=== PATIENT | female | born 1960 | race Caucasian/White ===

== ENCOUNTER → 2018-03-25 | Outpatient (CLI) | payer OTHER | LOC: M LRY 13:07 | DX: R05 Cough (principal) ==

== ENCOUNTER 2018-04-06 05:49 | Emergency (ER) | payer OTHER ==
[2018-04-06] MEDS: IPRATROPIUM 0.5MG/ALBUTEROL 2.5MG INH SOL UD 3ML (DUONEB)(J7620) NEB (07:18)
[2018-04-06] MEDS: ALBUTEROL SULFATE 2.5 MG/0.5 ML INH NEB SOLN INH (07:18)
[2018-04-06 07:24] LABS: BASO # 0.1 10^3/uL (0.0-0.2); BASO % 0.7 % (0.0-1.0); EOS # 0.9 10^3/uL (0.0-0.50); EOS % 10.1 % (0.0-3.0); HEMATOCRIT 44.7 % (36.0-47.0); HEMOGLOBIN 14.7 g/dl (12.0-15.5); IMMATURE GRANULOCYTE % 0.2 % (0-3.0); LYMPH # 3.5 10^3/uL (1.5-4.5); LYMPH % 39.5 % (24.0-44.0); MEAN CORPUSCULAR HEMOGLOBIN 29.5 pg (27.0-33.0); MEAN CORPUSCULAR HGB CONC 32.9 g/dl (32.0-36.5); MEAN CORPUSCULAR VOLUME 89.8 fl (80.0-96.0); MONO # 0.7 10^3/uL (0.0-0.8); MONO % 7.4 % (0.0-5.0); NEUTROPHILS # 3.8 10^3/uL (1.8-7.7); NEUTROPHILS % 42.1 % (36.0-66.0); PLATELET COUNT, AUTOMATED 270 10^3/uL (150-450); RED BLOOD COUNT 4.98 10^6/uL (4.00-5.40); RED CELL DISTRIBUTION WIDTH 12.8 % (11.5-14.5); WHITE BLOOD COUNT 8.9 10^3/uL (4.0-10.0)
[2018-04-06] MEDS: methylPREDNISolone INJ 125 MG/2 ML VIAL (J2930) IV (07:40)
[2018-04-06 07:55] LABS: ALBUMIN/GLOBULIN RATIO 1.29 (1.00-1.93); ALKALINE PHOSPHATASE 74 U/L (45-117); ALT/SGPT 31 U/L (12-78); ANION GAP 9 MEQ/L (8-16); AST/SGOT 10 U/L (7-37); BILIRUBIN,DIRECT < 0.1 MG/DL (0.0-0.2); BILIRUBIN,TOTAL 0.4 MG/DL (0.2-1.0); BLOOD UREA NITROGEN 10 MG/DL (7-18); CALCIUM LEVEL 9.6 MG/DL (8.5-10.1); CARBON DIOXIDE LEVEL 25 MEQ/L (21-32); CHLORIDE LEVEL 108 MEQ/L (98-107); CPK CREATINE PHOSPHOKINASE 65 U/L (26-192); CREATININE FOR GFR 0.74 MG/DL (0.55-1.30); GLOMERULAR FILTRATION RATE > 60.0 (>51); GLUCOSE, FASTING 216 MG/DL (70-100); MB/CK RELATIVE INDEX 1.85 (< OR =4); NT-PRO BNP 34 PG/ML (<125); POTASSIUM SERUM 3.6 MEQ/L (3.5-5.1); SODIUM LEVEL 142 MEQ/L (136-145); TOTAL PROTEIN 7.1 GM/DL (6.4-8.2); TROPONIN I < 0.02 NG/ML (< 0.10)
[2018-04-06 07:58] LABS: LACTIC ACID SEPSIS PROTOCOL 2.2 MMOL/L (0.4-2.0)
[2018-04-06] MEDS: NS 1,000 ML IV (08:00)
[2018-04-06] MEDS: AZITHROMYCIN 250 MG TAB PO (09:10)
== END 2018-04-06 09:12 | disposition home or self-care (01) ==
LOC: M ED 05:49
DX: J45.901 Unspecified asthma with (acute) exacerbation (principal); E11.9 Type 2 diabetes mellitus without complications; I10 Essential (primary) hypertension; Z79.84 Long term (current) use of oral hypoglycemic drugs; Z79.899 Other long term (current) drug therapy
CPT/HCPCS: J2930

== ENCOUNTER → 2019-12-15 | Outpatient (CLI) | payer OTHER ==
[~2019-12-15] MED LIST: ADDE10CA3 PO; ADDE30CA3 PO; ADV250INH INH; CAPTO25TA PO; METF-838 PO; MUCI600T31 PO; PROV108A INH; REST0.05 OS; ZITHTAB PO
[2019-12-15 07:05] LABS: HEMOGLOBIN 14.7 g/dl (12.0-15.5); MEAN CORPUSCULAR HEMOGLOBIN 29.8 pg (27.0-33.0); MEAN CORPUSCULAR HGB CONC 32.7 g/dl (32.0-36.5); MEAN CORPUSCULAR VOLUME 91.1 fl (80.0-96.0); PLATELET COUNT, AUTOMATED 217 10^3/uL (150-450); RED BLOOD COUNT 4.94 10^6/uL (4.00-5.40); WHITE BLOOD COUNT 8.7 10^3/uL (4.0-10.0)
[2019-12-15 07:26] LABS: HEMOGLOBIN A1c 7.1 %
[2019-12-15 08:03] LABS: ALBUMIN 4.5 GM/DL (3.2-5.2); ALT/SGPT 23 U/L (12-78); BILIRUBIN,TOTAL 0.6 MG/DL (0.2-1.0); BLOOD UREA NITROGEN 14 MG/DL (7-18); CALCIUM LEVEL 10.3 MG/DL (8.5-10.1); CARBON DIOXIDE LEVEL 29 MEQ/L (21-32); CHLORIDE LEVEL 109 MEQ/L (98-107); CHOLESTEROL LEVEL 194 MG/DL (<200); CHOLESTEROL RISK RATIO 2.984 (<5); CREATININE FOR GFR 0.69 MG/DL (0.55-1.30); FOLATE 15.7 NG/ML; FREE T4 0.99 NG/DL (0.76-1.46); GLOMERULAR FILTRATION RATE > 60.0 (>51); GLUCOSE, FASTING 125 MG/DL (70-100); HDL CHOLESTEROL 65 MG/DL (>40); LDL CHOLESTEROL 116 MG/DL (<100); NON-HDL-C 129 MG/DL; POTASSIUM SERUM 5.2 MEQ/L (3.5-5.1); SODIUM LEVEL 140 MEQ/L (136-145); TOTAL 25(OH) VITAMIN D 139.9 NG/ML (30.0-100.0); TOTAL PROTEIN 6.8 GM/DL (6.4-8.2); TRIGLYCERIDES LEVEL 65 MG/DL (<150); VITAMIN B12 LEVEL 798 PG/ML
[2019-12-15 16:52] LABS: MALB URINE SIEMENS 28.3 MG/L
== END ==
LOC: M LAB 06:30
PROVIDERS: ATTEND Nurse Practitioner Family
DX: E11.9 Type 2 diabetes mellitus without complications (principal); I10 Essential (primary) hypertension; R20.2 Paresthesia of skin; E04.1 Nontoxic single thyroid nodule; R53.81 Other malaise

== ENCOUNTER → 2020-03-19 | Outpatient (CLI) | payer SELFPAY | LOC: M LABSMTC 14:20 | PROVIDERS: ATTEND Pediatrics | DX: Z20.828 Contact with and (suspected) exposure to other viral communicable diseases (principal) ==

== ENCOUNTER → 2020-04-12 | Outpatient (CLI) | payer OTHER ==
[2020-04-12 07:08] LABS: HEMOGLOBIN A1c 6.1 %
[2020-04-12 07:14] LABS: ALBUMIN 3.9 GM/DL (3.2-5.2); ALT/SGPT 22 U/L (12-78); BILIRUBIN,TOTAL 0.5 MG/DL (0.2-1.0); BLOOD UREA NITROGEN 17 MG/DL (7-18); CALCIUM LEVEL 9.8 MG/DL (8.5-10.1); CARBON DIOXIDE LEVEL 30 MEQ/L (21-32); CHLORIDE LEVEL 107 MEQ/L (98-107); CHOLESTEROL LEVEL 121 MG/DL (<200); CHOLESTEROL RISK RATIO 1.833 (<5); CREATININE FOR GFR 0.75 MG/DL (0.55-1.30); GLOMERULAR FILTRATION RATE > 60.0 (>51); GLUCOSE, FASTING 131 MG/DL (70-100); HDL CHOLESTEROL 66 MG/DL (>40); LDL CHOLESTEROL 44 MG/DL (<100); NON-HDL-C 55 MG/DL; POTASSIUM SERUM 4.2 MEQ/L (3.5-5.1); SODIUM LEVEL 142 MEQ/L (136-145); TOTAL PROTEIN 6.2 GM/DL (6.4-8.2); TRIGLYCERIDES LEVEL 54 MG/DL (<150)
[2020-04-12 10:49] LABS: TOTAL 25(OH) VITAMIN D 76.1 NG/ML (30.0-100.0)
== END ==
LOC: M LAB 06:15
PROVIDERS: ATTEND Nurse Practitioner Family
DX: E78.2 Mixed hyperlipidemia (principal); E55.9 Vitamin D deficiency, unspecified; E11.9 Type 2 diabetes mellitus without complications; I10 Essential (primary) hypertension

== ENCOUNTER → 2020-05-17 | Outpatient (REF) | payer OTHER ==
[2020-05-17 18:45] LABS: APPEARANCE, URINE TURBID (CLEAR); BACTERIA, URINE AUTO NEGATIVE (NEGATIVE); BILIRUBIN, URINE AUTO NEGATIVE (NEGATIVE); BLOOD, URINE BLOOD NEGATIVE (NEGATIVE); CALCIUM OXALATE CRYSTALS MODERATE; COLOR, URINE YELLOW (YELLOW); GLUCOSE, URINE (UA) AUTO 1+ mg/dL (NEGATIVE); KETONE, URINE AUTO NEGATIVE (NEGATIVE); LEUKOCYTE ESTERASE, URINE AUTO NEGATIVE (NEGATIVE); MUCUS, URINE SMALL (NEGATIVE); NITRITE, URINE AUTO NEGATIVE (NEGATIVE); PROTEIN, URINE AUTO NEGATIVE (NEGATIVE); RBC, URINE AUTO 4 /HPF (0-3); SPECIFIC GRAVITY URINE AUTO 1.028 (1.002-1.035); SQUAMOUS EPITHELIAL CELL UR AU 1 /HPF (0-6); URIC ACID CRYSTALS LARGE; UROBILINOGEN, URINE AUTO 0.2 mg/dL (0.0-2.0); WBC, URINE AUTO 0 /HPF (0-3)
== END ==
LOC: M LAB REF 16:54
PROVIDERS: ATTEND Physician Assistant
DX: N39.0 Urinary tract infection, site not specified (principal)

== ENCOUNTER → 2020-07-29 | Outpatient (CLI) | payer OTHER ==
[2020-07-29 07:19] LABS: BLOOD UREA NITROGEN 18 MG/DL (7-18); CALCIUM LEVEL 9.9 MG/DL (8.5-10.1); CARBON DIOXIDE LEVEL 27 MEQ/L (21-32); CHLORIDE LEVEL 109 MEQ/L (98-107); CREATININE FOR GFR 0.82 MG/DL (0.55-1.30); GLOMERULAR FILTRATION RATE > 60.0 (>51); GLUCOSE, FASTING 134 MG/DL (70-100); POTASSIUM SERUM 4.3 MEQ/L (3.5-5.1); SODIUM LEVEL 144 MEQ/L (136-145)
[2020-07-29 07:22] LABS: HEMOGLOBIN A1c 5.9 %
== END ==
LOC: M LAB 06:20
PROVIDERS: ATTEND Nurse Practitioner Family
DX: E11.9 Type 2 diabetes mellitus without complications (principal); I10 Essential (primary) hypertension

== ENCOUNTER → 2020-08-06 | Outpatient (CLI) | payer OTHER ==
--- NOTE | 2020-08-06 17:45 | REP ---
INDICATION: CONSTIPATION, UNSPECIFIED. COMPARISON: None. TECHNIQUE: Supine and erect views of the abdomen and pelvis. FINDINGS: There is no evidence of free intraperitoneal air. There is no evidence of bowel obstruction. Air is scattered throughout the GI tract with no significant bowel dilatation. There are multiple phleboliths in the pelvis. There are degenerative changes of the spine. IMPRESSION: No significant radiographic abnormalities. <Electronically signed by Alfonso Webb > 08/06/20 [id number]
== END ==
LOC: M RAD 17:15
PROVIDERS: ATTEND Nurse Practitioner Family
DX: K59.00 Constipation, unspecified (principal)

== ENCOUNTER → 2020-08-07 | Outpatient (REF) | payer OTHER | LOC: M LAB REF 14:42 | PROVIDERS: ATTEND Nurse Practitioner Family | DX: R19.7 Diarrhea, unspecified (principal) ==

== ENCOUNTER → 2020-10-01 | Outpatient (CLI) | payer OTHER ==
[2020-10-01 07:07] LABS: BASO % 0.7 % (0.0-1.0); EOS # 0.3 10^3/uL (0.0-0.5); EOS % 4.6 % (0.0-3.0); HEMOGLOBIN 13.3 g/dl (12.0-15.5); LYMPH # 2.7 10^3/uL (1.5-5.0); LYMPH % 43.6 % (24.0-44.0); MEAN CORPUSCULAR HGB CONC 32.4 g/dl (32.0-36.5); MEAN CORPUSCULAR VOLUME 92.6 fl (80.0-96.0); MONO # 0.6 10^3/uL (0.0-0.8); MONO % 9.1 % (2.0-8.0); NEUTROPHILS # 2.6 10^3/uL (1.5-8.5); NEUTROPHILS % 41.7 % (36.0-66.0); PLATELET COUNT, AUTOMATED 206 10^3/uL (150-450); RED BLOOD COUNT 4.43 10^6/uL (4.00-5.40); WHITE BLOOD COUNT 6.2 10^3/uL (4.0-10.0)
[2020-10-01 07:34] LABS: BLOOD UREA NITROGEN 23 MG/DL (7-18); CREATININE FOR GFR 0.72 MG/DL (0.55-1.30); GLOMERULAR FILTRATION RATE > 60.0 (>51)
== END ==
LOC: M LAB 06:32
PROVIDERS: ATTEND Internal Medicine Gastroenterology
DX: R19.03 Right lower quadrant abdominal swelling, mass and lump (principal)

== ENCOUNTER → 2020-10-08 | Outpatient (CLI) | payer OTHER ==
[~2020-10-08] MED LIST changes: +D200CAP3 PO; +GASTROGRAFIN SOLUTION 30ML (Q9963) As Ordered ONE; +ISOVUE-370 76% 100ML VIAL As Ordered ONE; +MELO15TA28 PO; +VITA500T40 PO
--- NOTE | 2020-10-09 08:46 | REP ---
INDICATION: RLQ SWELLING, MASS, LUMP. COMPARISON: None TECHNIQUE: Axial contrast-enhanced images from the lung bases to the pubic symphysis using 100 cc Isovue 370 intravenous contrast material. . This CT examination was performed using the following dose reduction techniques: Automated exposure control, adjustment of mA and/or kv according to the patient's size, and the use of iterative reconstruction technique. FINDINGS: There is a large complex cystic pelvic adnexal mass which appears to contain soft tissue, fluid, calcifications and fatty components along with multiple septations and measuring greater than 14 x 13 x 10 cm. Differential diagnosis includes teratoma as well as cystadenoma/cystadenocarcinoma. A trace amount of free fluid is nonspecific and likely physiologic. No significant ascites and no adenopathy is appreciated. The uterus itself appears somewhat heterogeneous and possibly myomatous. Normal ovaries are not identifiable. Liver, spleen, pancreas, gallbladder, bilateral adrenal glands and kidneys are normal. The enteric system includes a small hiatal hernia. There is no bowel obstruction or acute inflammatory process. Few scattered sigmoid diverticula noted without acute diverticulitis. Abdominal aorta and vascular structures are intact and normal. No free air. Musculoskeletal structures are intact and without acute osseous abnormality. Lung bases are clear. IMPRESSION: 1. Large complex pelvic/adnexal mass as described above. Differential diagnosis includes but is not limited to teratoma as well as cystadenoma and much less likely cystadenocarcinoma. <Electronically signed by Angel Gonsalves > 10/09/20 [id number]
== END ==
LOC: M RAD 16:04
PROVIDERS: ATTEND Internal Medicine Gastroenterology
DX: R19.03 Right lower quadrant abdominal swelling, mass and lump (principal)

== ENCOUNTER → 2020-10-13 | Outpatient (CLI) | payer OTHER ==
[~2020-10-13] MED LIST changes: -GASTROGRAFIN SOLUTION 30ML (Q9963) As Ordered ONE; -ISOVUE-370 76% 100ML VIAL As Ordered ONE
== END ==
LOC: M LABSMTC 12:42
PROVIDERS: ATTEND Anesthesiology
DX: Z01.812 Encounter for preprocedural laboratory examination (principal); Z20.822 Contact with and (suspected) exposure to COVID-19

== ENCOUNTER → 2020-10-15 | Outpatient (CLI) | payer OTHER ==
--- NOTE | 2020-10-15 12:46 | REP ---
INDICATION: COMPLEX CYSTIC PELVIC MASS / US 1ST LAB 2ND EKG 3RD. COMPARISON: Comparison is made with CT study of the abdomen and pelvis October 08, 2020.. TECHNIQUE: Transabdominal and transvaginal scanning were performed. FINDINGS: Uterine dimensions are normal at 8.3 x 3.9 x 5 point cm. Endometrial echo is X 0.3 cm thick and centrally placed. No free fluid is seen in the cul-de-sac. Visualized bladder beach are smooth. There is a trace of fluid in the cul-de-sac. The uterus is heterogeneous. There are small uterine fibroids the largest of which is 2.2 cm in greatest diameter. There is a 1.7 cm uterine fibroid. There is a midline ovary posterior to the uterus measuring 2.6 x 1.4 x 2.2 cm. It was not possible to determine whether this was right or left ovary. No other ovarian tissue is appreciated. There is a complex solid and cystic mass filling the pelvis 19.6 x 8.4 x 14.4 cm and sonographic dimension. This corresponds to the large mass seen in the pelvis on CT.. 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 Only 1 ovary is visualized and this is in the midline. Fibroid change in the uterus. There is minimal free fluid.. <Electronically signed by Eric Gant > 10/15/20 [id number]
[2020-10-15 14:18] LABS: CA 125 7.3 U/ML (<30.2); CA19-9 TUMOR MARKER,CARBOHYDRA 82.4 U/ML (<35.0)
--- NOTE | 2020-10-15 22:14 | ECGEPIP ---
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 No significant change compared with 04/06/2018. Electronically Signed on 10-15-2020 22:14:19 EDT by Sai Medellin
== END ==
LOC: M LAB 11:08
PROVIDERS: ATTEND Obstetrics & Gynecology
DX: N83.291 Other ovarian cyst, right side (principal)

== ENCOUNTER 2020-10-18 06:40 | Day surgery (SDC) | payer OTHER ==
[~2020-10-18] VITALS: Ht 170.2 cm; Wt 67.1 kg
[~2020-10-18 06:40] MED LIST changes: +NS 1,000 ML IV ONE
[2020-10-18] MEDS ORDERED: LIDOCAINE 2% 100MG/5ML SDV (FOR ANES.) As Ordered ONE (07:11)
[2020-10-18] MEDS ORDERED: propofoL 200 MG/20 ML VIAL As Ordered ONE ×3 (07:11→09:07)
[2020-10-18] MEDS ORDERED: MIDAZOLAM INJ 2MG/2ML VIAL (J2250 PER 1MG) As Ordered ONE (07:15)
[2020-10-18] MEDS ORDERED: ONDANSETRON 4MG/2ML VIAL As Ordered ONE (07:47)
--- NOTE | 2020-10-18 08:28 | ROOR ---
Patient Name: Darcie Pinon Procedure Date: 10/18/2020 7:32 AM Date of : 1960 Age: 60 Room: [facility] Gender: Female Note Status: Finalized Procedure: Colonoscopy Indications: Screening for colorectal malignant neoplasm Providers: Ortiz Johnson MD Referring MD: Jazz Flynn NP Requesting Provider: Medicines: Monitored Anesthesia Care Complications: No immediate complications. Procedure: Pre-Anesthesia Assessment: - Prior to the procedure, a History and Physical was performed, and patient medications and allergies were reviewed. The patient is competent. The risks and benefits of the procedure and the sedation options and risks were discussed with the patient. All questions were answered and informed consent was obtained. Patient identification and proposed procedure were verified by the physician, the nurse and the anesthesiologist in the procedure room. Mental Status Examination: alert and oriented. Airway Examination: normal oropharyngeal airway and neck mobility. Respiratory Examination: clear to auscultation. CV Examination: normal. Prophylactic Antibiotics: The patient does not require prophylactic antibiotics. Prior Anticoagulants: The patient has taken no previous anticoagulant or antiplatelet agents. ASA Grade Assessment: II - A patient with mild systemic disease. After reviewing the risks and benefits, the patient was deemed in satisfactory condition to undergo the procedure. The anesthesia plan was to use monitored anesthesia care (MAC). Immediately prior to administration of medications, the patient was re-assessed for adequacy to receive sedatives. The heart rate, respiratory rate, oxygen saturations, blood pressure, adequacy of pulmonary ventilation, and response to care were monitored throughout the procedure. The physical status of the patient was re-assessed after the procedure. The Colonoscope was introduced through the anus and advanced to the terminal ileum, with identification of the appendiceal orifice and IC valve. The colonoscopy was performed without difficulty. The patient tolerated the procedure well. The quality of the bowel preparation was good. The terminal ileum, ileocecal valve, appendiceal orifice, and rectum were photographed. Scope insertion time was 2 minutes. The Colonoscope was introduced through the anus and advanced to the terminal ileum, with identification of the appendiceal orifice and IC valve. Scope withdrawal time was 9 minutes. The total duration of the procedure was 12 minutes. Findings: The perianal and digital rectal examinations were normal. The terminal ileum appeared normal. A 5 mm polyp was found in the cecum. The polyp was sessile. The polyp was removed with a cold snare. Resection and retrieval were complete. Verification of patient identification for the specimen was done by the physician and nurse using the patient's name, date and medical record number. Estimated blood loss was minimal. A 3 mm polyp was found in the descending colon. The polyp was sessile. The polyp was removed with a cold biopsy forceps. Resection and retrieval were complete. Multiple small and large-mouthed diverticula were found in the sigmoid colon. There was no evidence of diverticular bleeding. The sigmoid colon was significantly tortuous. Advancing the scope required withdrawing the scope and replacing with the enteroscope. Impression: - The examined portion of the ileum was normal. - One 5 mm polyp in the cecum, removed with a cold snare. Resected and retrieved. - One 3 mm polyp in the descending colon, removed with a cold biopsy forceps. Resected and retrieved. - Moderate diverticulosis in the sigmoid colon. There was no evidence of diverticular bleeding. - Tortuous colon. Recommendation: - Patient has a contact number available for emergencies. The signs and symptoms of potential delayed complications were discussed with the patient. Return to normal activities tomorrow. Written discharge instructions were provided to the patient. - High fiber diet. - Continue present medications. - Use fiber, for example Citrucel, Fibercon, Konsyl or Metamucil. - Await pathology results. - Telephone GI clinic for pathology results in 2 weeks. - Refer to a uniform designer as previously scheduled. - Return to primary care physician. - Repeat colonoscopy in 3 - 5 years for screening purposes and because the bowel preparation was suboptimal. Procedure Code(s): --- Professional --- 60139, Colonoscopy, flexible; with removal of tumor(s), polyp(s), or other lesion(s) by snare technique 92914, 59, Colonoscopy, flexible; with biopsy, single or multiple Diagnosis Code(s): --- Professional --- Z12.11, Encounter for screening for malignant neoplasm of colon K63.5, Polyp of colon K57.30, Diverticulosis of large intestine without perforation or abscess without bleeding Q43.8, Other specified congenital malformations of intestine CPT copyright 2019 [employer]. All rights reserved. The codes documented in this report are preliminary and upon wire spinner review may be revised to meet current compliance requirements. Ortiz Johnson MD Ortiz Johnson MD 10/18/2020 8:27:36 AM Electronically signed by Ortiz Johnson MD Number of Addenda: 0 Note Initiated On: 10/18/2020 7:32 AM Estimated Blood Loss: Estimated blood loss was minimal.
[2020-10-18 08:41] VITALS: BP 167/94
== END 2020-10-18 08:42 | disposition home or self-care (01) ==
LOC: M OPP 06:40
PROVIDERS: ATTEND Internal Medicine Gastroenterology
DX: Z12.11 Encounter for screening for malignant neoplasm of colon (principal); K63.5 Polyp of colon; Q43.8 Other specified congenital malformations of intestine; E11.9 Type 2 diabetes mellitus without complications; Z79.84 Long term (current) use of oral hypoglycemic drugs; Z79.899 Other long term (current) drug therapy
CPT/HCPCS: 45380; 45385; 88305; J2405; U0002

== ENCOUNTER 2020-10-21 06:38 | Day surgery (SDC) | payer OTHER ==
[~2020-10-21] VITALS: Ht 170.2 cm; Wt 68.0 kg
[2020-10-21] VITALS (7 sets, daily range): BP systolic 119–132; BP diastolic 59–80
[~2020-10-21 06:38] MED LIST changes: +LR 1,000 ML IV ONE; -NS 1,000 ML IV ONE; +ceFAZolin SOD 2 GM in IV 1 EA IV ONE
[2020-10-21] MEDS ORDERED: fentaNYL 100 MCG/2 ML INJECTION (J3010) IV PRN ×2 (07:01→12:30)
[2020-10-21 07:10] LABS: HEMATOCRIT 43.6 % (36.0-47.0); HEMOGLOBIN 14.2 g/dl (12.0-15.5); MEAN CORPUSCULAR HEMOGLOBIN 29.8 pg (27.0-33.0); MEAN CORPUSCULAR HGB CONC 32.6 g/dl (32.0-36.5); MEAN CORPUSCULAR VOLUME 91.6 fl (80.0-96.0); PLATELET COUNT, AUTOMATED 225 10^3/uL (150-450); RED BLOOD COUNT 4.76 10^6/uL (4.00-5.40); WHITE BLOOD COUNT 7.6 10^3/uL (4.0-10.0)
[2020-10-21] MEDS ORDERED: MIDAZOLAM INJ 2MG/2ML VIAL (J2250 PER 1MG) IV ONE (07:15)
[2020-10-21] MEDS ORDERED: LIDOCAINE 1% MDV 20ML VIAL XX ONE (07:15)
[2020-10-21 07:32] LABS: BLOOD UREA NITROGEN 11 MG/DL (7-18); CALCIUM LEVEL 9.7 MG/DL (8.5-10.1); CARBON DIOXIDE LEVEL 29 MEQ/L (21-32); CHLORIDE LEVEL 110 MEQ/L (98-107); CREATININE FOR GFR 0.72 MG/DL (0.55-1.30); GLOMERULAR FILTRATION RATE > 60.0 (>51); GLUCOSE, FASTING 126 MG/DL (70-100); POTASSIUM SERUM 4.3 MEQ/L (3.5-5.1); SODIUM LEVEL 143 MEQ/L (136-145)
[2020-10-21] MEDS ORDERED: SCOPOLAMINE 1MG TRANSDERMAL PATCH TOP ONE (07:50)
[2020-10-21] MEDS ORDERED: ROCURONIUM BROMIDE 50 MG/5 ML VIAL As Ordered ONE ×2 (08:37→09:21)
[2020-10-21] MEDS ORDERED: dexameTHASONE 4 MG/ML 1ML VIAL (J1100 PER 1MG) As Ordered ONE ×2 (08:37→10:27)
[2020-10-21] MEDS ORDERED: LIDOCAINE 2% 100MG/5ML SDV (FOR ANES.) As Ordered ONE (08:37)
[2020-10-21] MEDS ORDERED: fentaNYL 100 MCG/2 ML INJECTION (J3010) As Ordered ONE (08:37)
[2020-10-21] MEDS ORDERED: MIDAZOLAM INJ 2MG/2ML VIAL (J2250 PER 1MG) As Ordered ONE (08:37)
[2020-10-21] MEDS ORDERED: ALBUTEROL 6.7GM INHALER **FOR ANES. CART/OMNICELL ONLY As Ordered ONE (08:37)
[2020-10-21] MEDS ORDERED: ONDANSETRON 4MG/2ML VIAL As Ordered ONE (08:37)
[2020-10-21] MEDS ORDERED: propofoL 200 MG/20 ML VIAL As Ordered ONE (08:37)
[2020-10-21] MEDS ORDERED: BUPIVACAINE HCL 0.25% 30ML VIAL As Ordered ONE (08:38)
[2020-10-21] MEDS ORDERED: EPIDURAL/PCA KEYS XX PRN (09:35)
[2020-10-21] MEDS ORDERED: NALOXONE INJ 0.4MG/1ML VIAL (J2310 PER 1MG) IV PRN (09:35)
[2020-10-21] MEDS ORDERED: METOCLOPRAMIDE INJ 10MG/2ML VIAL (J2765 PER 1) IV PRN (09:35)
[2020-10-21] MEDS ORDERED: diphenhydrAMINE 50MG/ML VIAL (J1200) IV PRN (09:35)
[2020-10-21] MEDS ORDERED: ONDANSETRON 4MG/2ML VIAL IV PRN ×2 (09:35→12:30)
[2020-10-21] MEDS ORDERED: WALLBOXKEY XX PRN (09:35)
[2020-10-21] MEDS ORDERED: FENTANYL/BUPIVACAINE/NACL BAG 250 ML EPIDURAL SCH (09:35)
[2020-10-21] MEDS ORDERED: ACETAMINOPHEN 1000MG 100ML IV BTL (OFIRMEV) (J0131 PER 10MG) As Ordered ONE (10:27)
[2020-10-21] MEDS ORDERED: KETOROLAC 60MG 2ML VIAL As Ordered ONE (10:32)
[2020-10-21] MEDS ORDERED: SUGAMMADEX SODIUM 500 MG/5 ML VIAL (BRIDION) As Ordered ONE (10:32)
[2020-10-21] MEDS ORDERED: NORCO, ANEXSIA 5/325MG TABLET (HYDROcodone/ACETAMINOPHEN) PO PRN (11:30)
[2020-10-21] MEDS ORDERED: oxyCODONE 5MG TAB PO PRN (12:30)
[2020-10-21] MEDS ORDERED: LR 1,000 ML IV SCH (12:30)
--- NOTE | 2020-10-21 13:02 | RO ---
OPERATIVE NOTE DATE OF OPERATION: 10/21/2020 PREOPERATIVE DIAGNOSIS: Fibroid uterus and right ovarian mass. POSTOPERATIVE DIAGNOSIS: Borderline mucinous lesion of the left ovary, fibroid uterus. PROCEDURE: Total abdominal hysterectomy (JOHN), bilateral salpingo-oophorectomy (BSO), washings, omental biopsy. SURGEON: Dr. Griffith BASIN CLEANER: None ANESTHESIA: Epidural SPECIMENS: Uterus, ovaries, tubes, and, of course, the omental biopsy and the washings for cytology. BRIEF DESCRIPTION OF PROCEDURE AND FINDINGS: Darcie was brought to the operating room, where epidural anesthesia was induced. She was prepped, draped, and positioned in the usual sterile fashion, placed supine with a Ngo. Vertical midline incision was made, stopping under the umbilicus, and dissected continued through subcutaneous tissues. It was a little oozy for this red-headed patient, and Bovie was used as needed and then the fascia incised vertically and the rectus muscles carefully in the midline. Peritoneum entered superiorly. There was a small amount of peritoneal fluid, which was sampled for cytology. It had a kind of yellowish cast to it. Then we were readily able to see the lesion, which extended actually above the umbilicus but was palpably free from the other tissues but extended down into the pelvis. We rotated it, and there was a sort of narrow top, so we brought the top out through the wound, trying to see whether in its oblong shape, sort of tall and a little bit ovular, certainly not spherical, so had that narrow end. We brought that up to the wound to see how much we needed to deliver the cyst, and there was a very thin cystic lesion at the very top of the ovary, and just with manipulation to see what we would need to deliver it, this ruptured, releasing about 50 mL of a clearish fluid that had the same appearance as what we taken from the peritoneum. We suctioned that aggressively to minimize. It was up at the wound when this happened, so we tried to minimize any exposure of patient to this. We then continued our evaluation, much more solid-feeling ovary. We were not able to really even get around the lesion, like with a bag or anything like that. We did extend the wound up to the right lateral of the umbilicus, and then with it a little bit extended and carefully levering it through, we were able to deliver the lesion. Examining further the patient, it appeared that this was actually left ovary, not right, as expected. We were able to isolate the pedicle, carefully clamp across it, leaving the fallopian tube behind, and delivered the left ovary for frozen section, which was sent at that time. We were then able to bring up the fibroid uterus to the wound and grasp the broad ligaments bilaterally. As more typical, there was no studding, no lymphadenopathy in the pelvis, no visible evidence of other lesion. The right ovary was normal in appearance, as were the tubes, which did have Falope rings on them but otherwise normal. We did have fibroids on the uterus, but they had a typical fibroid appearance, and the patient had been aware of these for some time. We went ahead and clamped, transected, and ligated the round ligament, dissected through the broad, creating the bladder flap, and then carefully isolated the infundibulopelvic ligament on the right side, clamped, transected, and ligated it using 0 Vicryl and the SteinbergLopez clamps, which were used throughout. Then carefully worked our way toward the uterine vasculature. Clamped, transected, and ligated the uterine vasculature until we reached the level of the cervix. Then we clamped, transected, and ligated the uterosacrals and secured them for support of the vagina and carefully made the colpotomy circumferentially around the base of the cervix, delivered the uterus with the attached left fallopian tube and right fallopian tube and ovary, and, of course, the Falope rings and the fibroids. We then closed the cuff using 0 Vicryl with angle stitches of 0 Vicryl, incorporating the uterosacrals and then closing the cuff with a running-locked stitch. With the uterus out of the way, we examined the other pedicle and the infundibulopelvic that we had already dissected with delivery of the left ovary and mass. There were no other lesions. There were some minor adhesions of the bowel to the infundibulopelvic but no evidence of injury to the bowel and no evidence of other studding. No evidence of lymphadenopathy. We did go ahead and biopsy the omentum while we waited for the frozen, and then we irrigated with several liters of warm fluid and the re-evaluated the pedicles. They were dry. Then closed the peritoneal layer with 0 Vicryl, closed the fascia with #1 PDS, and then closed the skin with catarino, and dry sterile dressing was then applied. The frozen section had come back as borderline, not invasive, so decision had been made against lymph node dissection, especially with no other lesions visible. We had already sent the peritoneal fluid and the omental biopsy. Darcie tolerated the procedure well and is recovering in the recovery room in good condition. ESTIMATED BLOOD LOSS: 250 mL. FLUID REPLACEMENT: Crystalloid. COMPLICATIONS: None.
[2020-10-21] MEDS: LR 1,000 ML IV SCH (17:36)
[2020-10-21] MEDS ORDERED: MORPHINE PRES-FREE INJ 10 MG/10 ML VIAL (J2274) As Ordered ONE (22:33)
[2020-10-21] MEDS: IBUPROFEN 600MG TAB PO PRN (23:50)
[2020-10-22] MEDS: LR 1,000 ML IV SCH ×2 (00:25→03:30)
[2020-10-22 02:00] VITALS: BP 150/76
[2020-10-22 06:00] VITALS: BP 127/59
[2020-10-22] MEDS ORDERED: NORCO, ANEXSIA 5/325MG TABLET (HYDROcodone/ACETAMINOPHEN) PO PRN (06:00)
[2020-10-22] MEDS: IBUPROFEN 600MG TAB PO PRN ×2 (06:22→12:09)
[2020-10-22 07:19] LABS: HEMATOCRIT 40.8 % (36.0-47.0); MEAN CORPUSCULAR HEMOGLOBIN 30.4 pg (27.0-33.0); MEAN CORPUSCULAR HGB CONC 31.9 g/dl (32.0-36.5); MEAN CORPUSCULAR VOLUME 95.3 fl (80.0-96.0); PLATELET COUNT, AUTOMATED 191 10^3/uL (150-450); RED BLOOD COUNT 4.28 10^6/uL (4.00-5.40); WHITE BLOOD COUNT 10.4 10^3/uL (4.0-10.0)
[2020-10-22] MEDS ORDERED: metFORMIN (GLUCOPHAGE) 500MG TAB PO SCH (08:00)
[2020-10-22 08:52] VITALS: BP 127/60
[2020-10-22] MEDS ORDERED: metFORMIN XR 500MG TAB *GLUCOPHAGE XR PO SCH (09:00)
[2020-10-22 10:00] VITALS: BP 130/69
== END 2020-10-22 13:25 | disposition home or self-care (01) ==
LOC: M SDC 06:38 → M OBS 13:18 → M SDC 10-22 13:25
PROVIDERS: ATTEND Obstetrics & Gynecology
DX: D39.12 Neoplasm of uncertain behavior of left ovary (principal); D25.9 Leiomyoma of uterus, unspecified; I10 Essential (primary) hypertension; J45.909 Unspecified asthma, uncomplicated; E11.9 Type 2 diabetes mellitus without complications; M19.90 Unspecified osteoarthritis, unspecified site; K59.00 Constipation, unspecified; G43.909 Migraine, unspecified, not intractable, without status migrainosus; Z79.899 Other long term (current) drug therapy; Z79.51 Long term (current) use of inhaled steroids; Z79.84 Long term (current) use of oral hypoglycemic drugs
CPT/HCPCS: 36415; 58150; 80048; 85027; 86850; 86900; 86901; 88108; 88307; 88313; J0131; J1100; J1885; J2250; J2274; J2405; J3010

== ENCOUNTER → 2020-11-02 | Outpatient (REF) | payer OTHER ==
[~2020-11-02] MED LIST changes: -LR 1,000 ML IV ONE; -ceFAZolin SOD 2 GM in IV 1 EA IV ONE
== END ==
LOC: M LAB REF 15:27
PROVIDERS: ATTEND Obstetrics & Gynecology
DX: Z00.00 Encounter for general adult medical examination without abnormal findings (principal)

== ENCOUNTER → 2020-11-02 | Outpatient (CLI) | payer OTHER ==
[2020-11-02 09:13] LABS: ALBUMIN 3.8 GM/DL (3.2-5.2); ALT/SGPT 15 U/L (12-78); BILIRUBIN,TOTAL 0.3 MG/DL (0.2-1.0); BLOOD UREA NITROGEN 14 MG/DL (7-18); CALCIUM LEVEL 10.2 MG/DL (8.5-10.1); CARBON DIOXIDE LEVEL 28 MEQ/L (21-32); CHLORIDE LEVEL 108 MEQ/L (98-107); CREATININE FOR GFR 0.57 MG/DL (0.55-1.30); GLOMERULAR FILTRATION RATE > 60.0 (>51); GLUCOSE, FASTING 142 MG/DL (70-100); POTASSIUM SERUM 4.5 MEQ/L (3.5-5.1); SODIUM LEVEL 143 MEQ/L (136-145); TOTAL PROTEIN 6.4 GM/DL (6.4-8.2)
[2020-11-02 09:28] LABS: TOTAL 25(OH) VITAMIN D 81.2 NG/ML (30.0-100.0)
[2020-11-02 09:34] LABS: HEMOGLOBIN A1c 6.1 %
== END ==
LOC: M LAB 07:08
PROVIDERS: ATTEND Nurse Practitioner Family
DX: R19.7 Diarrhea, unspecified (principal)

== ENCOUNTER 2020-12-02 11:01 | Outpatient (RCR) | payer OTHER ==
[2020-12-03] MEDS ORDERED: META1TAB22 PO (12:13)
== END 2020-12-08 ==
LOC: M PT 11:01
PROVIDERS: ATTEND Nurse Practitioner Family
DX: M54.5 Low back pain (principal)

== ENCOUNTER → 2020-12-03 | Outpatient (CLI) | payer OTHER ==
[~2020-12-03] MED LIST changes: +META1TAB22 PO
== END ==
LOC: M LABSMTC 11:01
PROVIDERS: ATTEND Anesthesiology
DX: Z01.818 Encounter for other preprocedural examination (principal); Z11.52 Encounter for screening for COVID-19

== ENCOUNTER 2020-12-07 08:16 | Day surgery (SDC) | payer OTHER ==
[~2020-12-07] VITALS: Ht 170.2 cm; Wt 70.2 kg
[~2020-12-07 08:16] MED LIST changes: +NS 1,000 ML IV ONE
[2020-12-07] MEDS ORDERED: propofoL 200 MG/20 ML VIAL As Ordered ONE (10:18)
[2020-12-07] MEDS ORDERED: LIDOCAINE 2% 100MG/5ML SDV (FOR ANES.) As Ordered ONE (10:18)
[2020-12-07] MEDS ORDERED: fentaNYL 100 MCG/2 ML INJECTION (J3010) As Ordered ONE (10:19)
--- NOTE | 2020-12-07 11:09 | ROOR ---
Patient Name: Darcie Pinon Procedure Date: 12/07/2020 10:33 AM Date of : 1960 Age: 60 Room: [facility] Gender: Female Note Status: Finalized Procedure: Upper GI endoscopy Indications: Screening procedure Providers: Ortiz Johnson MD Referring MD: Jackeline Griffith MD, QING LOWERY MD Requesting Provider: Medicines: Monitored Anesthesia Care Complications: No immediate complications. Procedure: Pre-Anesthesia Assessment: - Prior to the procedure, a History and Physical was performed, and patient medications and allergies were reviewed. The patient is competent. The risks and benefits of the procedure and the sedation options and risks were discussed with the patient. All questions were answered and informed consent was obtained. Patient identification and proposed procedure were verified by the physician, the nurse and the anesthesiologist in the procedure room. Mental Status Examination: alert and oriented. Airway Examination: normal oropharyngeal airway and neck mobility. Respiratory Examination: clear to auscultation. CV Examination: normal. Prophylactic Antibiotics: The patient does not require prophylactic antibiotics. Prior Anticoagulants: The patient has taken no previous anticoagulant or antiplatelet agents. ASA Grade Assessment: II - A patient with mild systemic disease. After reviewing the risks and benefits, the patient was deemed in satisfactory condition to undergo the procedure. The anesthesia plan was to use monitored anesthesia care (MAC). Immediately prior to administration of medications, the patient was re-assessed for adequacy to receive sedatives. The heart rate, respiratory rate, oxygen saturations, blood pressure, adequacy of pulmonary ventilation, and response to care were monitored throughout the procedure. The physical status of the patient was re-assessed after the procedure. The Endoscope was introduced through the mouth, and advanced to the second part of duodenum. The upper GI endoscopy was accomplished without difficulty. The patient tolerated the procedure well. Findings: The examined esophagus was normal. The Z-line was irregular and was found at the gastroesophageal junction. Scattered and patchy mild inflammation characterized by erythema and granularity was found in the gastric antrum. Biopsies were taken with a cold forceps for Helicobacter pylori testing. Verification of patient identification for the specimen was done by the physician and nurse using the patient's name, date and medical record number. Estimated blood loss was minimal. The duodenal bulb, second portion of the duodenum, major papilla, area of the papilla and third portion of the duodenum were normal. Impression: - Normal esophagus. - Z-line irregular, at the gastroesophageal junction. - Gastritis. Biopsied. - Normal duodenal bulb, second portion of the duodenum, major papilla, area of the papilla and third portion of the duodenum. Recommendation: - Patient has a contact number available for emergencies. The signs and symptoms of potential delayed complications were discussed with the patient. Return to normal activities tomorrow. Written discharge instructions were provided to the patient. - High fiber diet. - Continue present medications. - Await pathology results. - If Biopsy shows H. pylori will need therapy with antibiotic course.. - Telephone GI clinic for pathology results in 2 weeks. - Return to primary care physician. - Return to GI clinic if persistent symptoms or new symptoms. Procedure Code(s): --- Professional --- 26551, Esophagogastroduodenoscopy, flexible, transoral; with biopsy, single or multiple Diagnosis Code(s): --- Professional --- K22.8, Other specified diseases of esophagus K29.70, Gastritis, unspecified, without bleeding Z13.810, Encounter for screening for upper gastrointestinal disorder CPT copyright 2019 [employer]. All rights reserved. The codes documented in this report are preliminary and upon director of speech pathology review may be revised to meet current compliance requirements. Ortiz Johnson MD Ortiz Johnson MD 12/07/2020 11:09:37 AM Electronically signed by Ortiz Johnson MD Number of Addenda: 0 Note Initiated On: 12/07/2020 10:33 AM Estimated Blood Loss: Estimated blood loss was minimal.
[2020-12-07 11:10] VITALS: BP 163/80
== END 2020-12-07 11:20 | disposition home or self-care (01) ==
LOC: M OPP 08:16
PROVIDERS: ATTEND Internal Medicine Gastroenterology
DX: K22.8 Other specified diseases of esophagus (principal); K29.70 Gastritis, unspecified, without bleeding; Z13.810 Encounter for screening for upper gastrointestinal disorder; Z79.84 Long term (current) use of oral hypoglycemic drugs; Z79.899 Other long term (current) drug therapy
CPT/HCPCS: 43239; 88305; J3010

== ENCOUNTER → 2020-12-20 | Outpatient (CLI) | payer OTHER ==
[~2020-12-20] MED LIST changes: -NS 1,000 ML IV ONE
--- NOTE | 2020-12-21 10:13 | REP ---
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 COMPARISON: Comparison CT abdomen pelvis October 08, 2020.. TECHNIQUE: Fifty-six minutes following the intravenous injection of a 8.13 mCi dose of F-18 FDG, three-dimensional PET scintigraphy is acquired from the skull base to the proximal thighs. Triplanar noncontrast CT scanning is acquired through the same anatomic range for attenuation correction, and image registration with scan parameters optimized to minimize radiation exposure to the patient. PET scintigraphy and CT datasets were fused and displayed on a workstation with multiplanar and projection display capability. FINDINGS: Head and neck soft tissues are unremarkable. There is no abnormal hypermetabolic uptake in the thorax. In the abdomen and pelvis there is normal hepatic, splenic, gastrointestinal, and genitourinary FDG accumulation. The large adnexal mass is been removed surgically. There is a linear pattern of slightly increased in and minimally hypermetabolic uptake in the laparotomy incision in the anterior abdominal wall. Maximum standard uptake value in this region is 3.25. No mass effect is appreciated. There are 2 subcentimeter mona foci of increased uptake in mesenteric fat in the central abdomen. Equivocal FDG accumulation is seen here. Maximum standard uptake value is 1.92 in this region. These were not visible on the preoperative CT study of October 08, 2020. Uncertain significance. No abnormal skeletal uptake. IMPRESSION: Two subcentimeter mona foci of visible but non hypermetabolic uptake in the mesenteric fat in the left central abdomen. This is equivocal. There is also uptake in the anterior abdominal wall laparotomy site in a linear pattern which is felt to be due to recent surgery. No other abnormal hypermetabolic uptake. <Electronically signed by Eric Gant > 12/21/20 [id number]
== END ==
LOC: M PLARAD 15:03
PROVIDERS: ATTEND Obstetrics & Gynecology
DX: C56.2 Malignant neoplasm of left ovary (principal)
CPT/HCPCS: 78816; A9552

== ENCOUNTER 2021-01-06 16:00 | Outpatient (RCR) | payer OTHER | END 2021-01-08 | LOC: M PT 16:00 | PROVIDERS: ATTEND Nurse Practitioner Family | DX: M54.5 Low back pain (principal) ==

== ENCOUNTER 2021-01-11 15:36 | Outpatient (RCR) | payer OTHER | END 2021-02-08 | LOC: M PT 15:36 | PROVIDERS: ATTEND Nurse Practitioner Family | DX: M54.5 Low back pain (principal) ==

== ENCOUNTER → 2021-08-02 | Outpatient (CLI) | payer OTHER ==
[2021-08-02 07:10] LABS: HEMATOCRIT 38.6 % (36.0-47.0); HEMOGLOBIN 12.4 g/dl (12.0-15.5); MEAN CORPUSCULAR HGB CONC 32.1 g/dl (32.0-36.5); MEAN CORPUSCULAR VOLUME 90.4 fl (80.0-96.0); PLATELET COUNT, AUTOMATED 215 10^3/uL (150-450); RED BLOOD COUNT 4.27 10^6/uL (4.00-5.40); WHITE BLOOD COUNT 5.5 10^3/uL (4.0-10.0)
[2021-08-02 07:41] LABS: CHOLESTEROL LEVEL 181 MG/DL (<200); CHOLESTEROL RISK RATIO 2.967 (<5); FREE T4 1.04 NG/DL (0.76-1.46); HDL CHOLESTEROL 61 MG/DL (>40); LDL CHOLESTEROL 107 MG/DL (<100); NON-HDL-C 120 MG/DL; TRIGLYCERIDES LEVEL 64 MG/DL (<150)
[2021-08-02 07:42] LABS: MALB URINE SIEMENS 14.9 MG/L; MAU/CREAT RATIO 7.7 MCG/MG (0.0-30.0)
[2021-08-02 08:08] LABS: ATYPICAL LYMPH 5 % (0-5); BASOPHILS 2 % (0-1); EOSINOPHILS 4 % (0-3); LYMPHOCYTES 43 % (16-44); MONOCYTES 16 % (0-5); NEUTROPHILS 30 % (28-66); OVALOCYTES 1+; PLATELET ESTIMATE NORMAL (NORMAL)
[2021-08-02 08:15] LABS: TOTAL 25(OH) VITAMIN D 38.9 NG/ML (30.0-100.0); VITAMIN B12 LEVEL > 2000 PG/ML (247-911)
[2021-08-02 08:33] LABS: HEMOGLOBIN A1c 6.5 %
== END ==
LOC: M LAB 06:22
PROVIDERS: ATTEND Physician Assistant
DX: E11.9 Type 2 diabetes mellitus without complications (principal)

== ENCOUNTER → 2021-10-20 | Outpatient (CLI) | payer BC ==
[2021-10-20 07:38] LABS: HEMOGLOBIN A1c 6.8 %
== END ==
LOC: M LAB 06:26
PROVIDERS: ATTEND Physician Assistant
DX: E11.9 Type 2 diabetes mellitus without complications (principal)

== ENCOUNTER → 2021-10-31 | Outpatient (CLI) | payer BC ==
[2021-10-31 16:57] LABS: BLOOD UREA NITROGEN 18 MG/DL (7-18); CREATININE FOR GFR 0.88 MG/DL (0.55-1.30); GLOMERULAR FILTRATION RATE > 60.0 (>45)
== END ==
LOC: M LAB 15:10
PROVIDERS: ATTEND Physician Assistant
DX: I10 Essential (primary) hypertension (principal)

== ENCOUNTER → 2021-11-11 | Outpatient (CLI) | payer BC ==
[~2021-11-11] MED LIST changes: +PROHANCE 279.3MG/ML 15ML VIAL As Ordered ONE
== END ==
LOC: M RAD 07:10
PROVIDERS: ATTEND Psychiatry & Neurology Neurology
DX: R41.3 Other amnesia (principal); G44.221 Chronic tension-type headache, intractable; G43.109 Migraine with aura, not intractable, without status migrainosus

== ENCOUNTER → 2021-12-01 | Outpatient (REF) ==
[~2021-12-01] MED LIST changes: -PROHANCE 279.3MG/ML 15ML VIAL As Ordered ONE
== END ==
LOC: M LABSMTC 10:44
PROVIDERS: ATTEND Family Medicine
DX: Z20.822 Contact with and (suspected) exposure to COVID-19 (principal); Z11.52 Encounter for screening for COVID-19

== ENCOUNTER → 2022-09-15 | Outpatient (CLI) | payer BC ==
[~2022-09-15] MED LIST changes: +ALBU6.7H6 INH; -PROV108A INH
[2022-09-15 07:30] LABS: BASO % 0.6 % (0.0-1.0); EOS # 0.2 10^3/uL (0.0-0.5); HEMATOCRIT 42.2 % (36.0-47.0); HEMOGLOBIN 13.7 g/dl (12.0-15.5); LYMPH # 2.6 10^3/uL (1.5-5.0); MEAN CORPUSCULAR HGB CONC 32.5 g/dl (32.0-36.5); MEAN CORPUSCULAR VOLUME 89.4 fl (80.0-96.0); MONO # 0.6 10^3/uL (0.0-0.8); NEUTROPHILS # 2.8 10^3/uL (1.5-8.5); NEUTROPHILS % 44.1 % (36.0-66.0); PLATELET COUNT, AUTOMATED 231 10^3/uL (150-450); RED BLOOD COUNT 4.72 10^6/uL (4.00-5.40); WHITE BLOOD COUNT 6.3 10^3/uL (4.0-10.0)
[2022-09-15 07:53] LABS: CREATININE, URINE 110.2 MG/DL; MAU/CREAT RATIO 2.7 MCG/MG (0.0-30.0)
[2022-09-15 07:54] LABS: ALBUMIN 4.2 G/DL (3.2-5.2); ALKALINE PHOSPHATASE 65 U/L (46-116); ALT/SGPT 19 U/L (7.0-40); AST/SGOT 14 U/L (<34); BILIRUBIN,TOTAL 0.6 MG/DL (0.3-1.2); BLOOD UREA NITROGEN 18 MG/DL (9-23); CARBON DIOXIDE LEVEL 29 MMOL/L (20-31); CHLORIDE LEVEL 105 MMOL/L (98-107); CREATININE FOR GFR 0.59 MG/DL (0.55-1.30); GLOMERULAR FILTRATION RATE > 60.0 (>45); GLUCOSE, FASTING 143 MG/DL (74-106); POTASSIUM SERUM 4.6 MMOL/L (3.5-5.1); SODIUM LEVEL 139 MMOL/L (136-145); TOTAL PROTEIN 6.2 G/DL (5.7-8.2)
[2022-09-15 07:56] LABS: THYROID STIMULATING HORMONE 1.808 uIU/ML (0.55-4.78); TOTAL 25(OH) VITAMIN D 29.9 NG/ML (20.0-100.0)
[2022-09-15 07:57] LABS: FREE T4 0.96 NG/DL (0.89-1.76)
[2022-09-15 08:01] LABS: HEMOGLOBIN A1c 7.5 % (4.0-6.0)
[2022-09-15 08:11] LABS: CA19-9 TUMOR MARKER,CARBOHYDRA 29.6 U/ML (<35.0)
== END ==
LOC: M LAB 06:46
PROVIDERS: ATTEND Physician Assistant
DX: Z85.43 Personal history of malignant neoplasm of ovary (principal)

== ENCOUNTER → 2023-01-25 | Outpatient (CLI) | payer BC ==
[2023-01-25 08:34] LABS: BASO % 0.4 % (0.0-1.0); EOS # 0.1 10^3/uL (0.0-0.5); EOS % 1.9 % (0.0-3.0); HEMATOCRIT 43.1 % (36.0-47.0); HEMOGLOBIN 13.9 g/dl (12.0-15.5); LYMPH # 2.3 10^3/uL (1.5-5.0); LYMPH % 33.9 % (24.0-44.0); MEAN CORPUSCULAR HEMOGLOBIN 29.1 pg (27.0-33.0); MEAN CORPUSCULAR HGB CONC 32.3 g/dl (32.0-36.5); MEAN CORPUSCULAR VOLUME 90.2 fl (80.0-96.0); MONO # 0.6 10^3/uL (0.0-0.8); MONO % 8.7 % (2.0-8.0); NEUTROPHILS # 3.8 10^3/uL (1.5-8.5); NEUTROPHILS % 55.1 % (36.0-66.0); PLATELET COUNT, AUTOMATED 253 10^3/uL (150-450); RED BLOOD COUNT 4.78 10^6/uL (4.00-5.40); WHITE BLOOD COUNT 6.9 10^3/uL (4.0-10.0)
[2023-01-25 09:07] LABS: ALBUMIN 4.2 G/DL (3.2-5.2); ALKALINE PHOSPHATASE 55 U/L (46-116); ALT/SGPT 15 U/L (7.0-40); AST/SGOT < 8 U/L (<34); BILIRUBIN,TOTAL 0.8 MG/DL (0.3-1.2); BLOOD UREA NITROGEN 13 MG/DL (9-23); CALCIUM LEVEL 10.9 MG/DL (8.3-10.6); CARBON DIOXIDE LEVEL 30 MMOL/L (20-31); CHLORIDE LEVEL 106 MMOL/L (98-107); CHOLESTEROL LEVEL 164 MG/DL (<200); CHOLESTEROL RISK RATIO 2.59 (<5); CREATININE FOR GFR 0.66 MG/DL (0.55-1.30); GLOMERULAR FILTRATION RATE > 60.0 (>45); GLUCOSE, FASTING 119 MG/DL (74-106); HDL CHOLESTEROL 63.3 MG/DL (>40); LDL CHOLESTEROL 86.7 MG/DL (<100); NON-HDL-C 100.7 MG/DL; POTASSIUM SERUM 5.1 MMOL/L (3.5-5.1); SODIUM LEVEL 140 MMOL/L (136-145); TOTAL 25(OH) VITAMIN D 22.5 NG/ML (20.0-100.0); TOTAL PROTEIN 6.5 G/DL (5.7-8.2); TRIGLYCERIDES LEVEL 70 MG/DL (<150)
[2023-01-25 09:08] LABS: HEMOGLOBIN A1c 6.7 % (4.0-6.0)
== END ==
LOC: M LAB 08:05
PROVIDERS: ATTEND Physician Assistant
DX: I10 Essential (primary) hypertension (principal); E11.9 Type 2 diabetes mellitus without complications

== ENCOUNTER → 2023-01-25 | Outpatient (CLI) | payer BC ==
[2023-01-25 08:32] LABS: HEMATOCRIT 43.2 % (36.0-47.0); HEMOGLOBIN 14.1 g/dl (12.0-15.5); MEAN CORPUSCULAR HEMOGLOBIN 29.6 pg (27.0-33.0); MEAN CORPUSCULAR HGB CONC 32.6 g/dl (32.0-36.5); MEAN CORPUSCULAR VOLUME 90.6 fl (80.0-96.0); PLATELET COUNT, AUTOMATED 252 10^3/uL (150-450); RED BLOOD COUNT 4.77 10^6/uL (4.00-5.40); WHITE BLOOD COUNT 6.8 10^3/uL (4.0-10.0)
[2023-01-25 08:44] LABS: ERYTHROCYTE SEDIMENTATION RATE 2 mm/hr (0-30)
[2023-01-25 08:46] LABS: PROTHROMBIN TIME 12.9 SECONDS (12.5-14.5)
[2023-01-25 09:03] LABS: ALBUMIN 4.3 G/DL (3.2-5.2); ALKALINE PHOSPHATASE 54 U/L (46-116); ALT/SGPT 13 U/L (7.0-40); AST/SGOT < 8 U/L (<34); BILIRUBIN,TOTAL 0.8 MG/DL (0.3-1.2); BLOOD UREA NITROGEN 12 MG/DL (9-23); CALCIUM LEVEL 10.6 MG/DL (8.3-10.6); CARBON DIOXIDE LEVEL 29 MMOL/L (20-31); CHLORIDE LEVEL 107 MMOL/L (98-107); CREATININE FOR GFR 0.63 MG/DL (0.55-1.30); GLOMERULAR FILTRATION RATE > 60.0 (>45); GLUCOSE, FASTING 119 MG/DL (74-106); POTASSIUM SERUM 4.6 MMOL/L (3.5-5.1); SODIUM LEVEL 140 MMOL/L (136-145); TOTAL PROTEIN 6.5 G/DL (5.7-8.2)
== END ==
LOC: M RAD 07:10
PROVIDERS: ATTEND Orthopaedic Surgery
DX: Z01.818 Encounter for other preprocedural examination (principal); M17.31 Unilateral post-traumatic osteoarthritis, right knee

== ENCOUNTER → 2023-06-29 | Outpatient (CLI) | payer BC ==
[2023-06-29 11:22] LABS: BASO % 0.5 % (0.0-1.0); EOS # 0.2 10^3/uL (0.0-0.5); EOS % 2.7 % (0.0-3.0); HEMOGLOBIN 13.6 g/dl (12.0-15.5); LYMPH # 2.3 10^3/uL (1.5-5.0); LYMPH % 29.4 % (24.0-44.0); MEAN CORPUSCULAR HEMOGLOBIN 29.1 pg (27.0-33.0); MEAN CORPUSCULAR HGB CONC 32.4 g/dl (32.0-36.5); MEAN CORPUSCULAR VOLUME 89.9 fl (80.0-96.0); MONO # 0.7 10^3/uL (0.0-0.8); MONO % 8.6 % (2.0-8.0); NEUTROPHILS # 4.5 10^3/uL (1.5-8.5); NEUTROPHILS % 58.5 % (36.0-66.0); PLATELET COUNT, AUTOMATED 246 10^3/uL (150-450); RED BLOOD COUNT 4.67 10^6/uL (4.00-5.40); WHITE BLOOD COUNT 7.8 10^3/uL (4.0-10.0)
[2023-06-29 11:49] LABS: BLOOD UREA NITROGEN 16 MG/DL (9-23); CALCIUM LEVEL 10.8 MG/DL (8.3-10.6); CARBON DIOXIDE LEVEL 31 MMOL/L (20-31); CHLORIDE LEVEL 107 MMOL/L (98-107); CHOLESTEROL LEVEL 163 MG/DL (<200); CHOLESTEROL RISK RATIO 2.55 (<5); CREATININE FOR GFR 0.73 MG/DL (0.55-1.30); GLOMERULAR FILTRATION RATE > 60.0 (>45); GLUCOSE, FASTING 119 MG/DL (74-106); HDL CHOLESTEROL 63.8 MG/DL (>40); NON-HDL-C 99.2 MG/DL; POTASSIUM SERUM 4.3 MMOL/L (3.5-5.1); SODIUM LEVEL 140 MMOL/L (136-145); TRIGLYCERIDES LEVEL 126 MG/DL (<150)
[2023-06-29 11:50] LABS: TOTAL 25(OH) VITAMIN D 26.4 NG/ML (20.0-100.0)
[2023-06-29 11:51] LABS: THYROID STIMULATING HORMONE 1.462 uIU/ML (0.55-4.78)
[2023-06-29 11:52] LABS: FREE T4 0.94 NG/DL (0.89-1.76)
[2023-06-29 12:05] LABS: CA19-9 TUMOR MARKER,CARBOHYDRA 25.7 U/ML (<35.0)
== END ==
LOC: M LAB 10:44
PROVIDERS: ATTEND Physician Assistant
DX: I10 Essential (primary) hypertension (principal); E11.9 Type 2 diabetes mellitus without complications; E55.9 Vitamin D deficiency, unspecified; Z85.43 Personal history of malignant neoplasm of ovary; F41.1 Generalized anxiety disorder

== ENCOUNTER → 2024-05-07 | Outpatient (CLI) | payer OTHER ==
[~2024-05-07] MED LIST changes: +META-10 PO; -META1TAB22 PO
[2024-05-07 07:52] LABS: BASO % 0.6 % (0.0-1.0); EOS # 0.2 10^3/uL (0.0-0.5); EOS % 2.5 % (0.0-3.0); HEMATOCRIT 42.8 % (36.0-47.0); HEMOGLOBIN 14.2 g/dl (12.0-15.5); LYMPH # 2.5 10^3/uL (1.5-5.0); LYMPH % 39.5 % (24.0-44.0); MEAN CORPUSCULAR HEMOGLOBIN 29.6 pg (27.0-33.0); MEAN CORPUSCULAR HGB CONC 33.2 g/dl (32.0-36.5); MEAN CORPUSCULAR VOLUME 89.2 fl (80.0-96.0); MONO # 0.6 10^3/uL (0.0-0.8); MONO % 9.4 % (2.0-8.0); NEUTROPHILS % 47.8 % (36.0-66.0); PLATELET COUNT, AUTOMATED 237 10^3/uL (150-450); WHITE BLOOD COUNT 6.3 10^3/uL (4.0-10.0)
[2024-05-07 08:01] LABS: HEMOGLOBIN A1c 5.9 % (4.0-6.0)
[2024-05-07 08:19] LABS: BLOOD UREA NITROGEN 11 MG/DL (9-23); CALCIUM LEVEL 11.3 MG/DL (8.3-10.6); CARBON DIOXIDE LEVEL 30 MMOL/L (20-31); CHLORIDE LEVEL 107 MMOL/L (98-107); CHOLESTEROL LEVEL 192 MG/DL (<200); CHOLESTEROL RISK RATIO 3.48 (<5); CREATININE FOR GFR 0.66 MG/DL (0.55-1.30); GLOMERULAR FILTRATION RATE > 60.0 (>45); GLUCOSE, FASTING 109 MG/DL (74-106); HDL CHOLESTEROL 55.1 MG/DL (>40); LDL CHOLESTEROL 113.9 MG/DL (<100); NON-HDL-C 136.9 MG/DL; POTASSIUM SERUM 5.1 MMOL/L (3.5-5.1); PTH INTACT 105.2 PG/ML (18.5-88.0); SODIUM LEVEL 141 MMOL/L (136-145); TRIGLYCERIDES LEVEL 115 MG/DL (<150)
[2024-05-07 08:21] LABS: TOTAL 25(OH) VITAMIN D 23.3 NG/ML (20.0-100.0)
[2024-05-07 08:37] LABS: CA19-9 TUMOR MARKER,CARBOHYDRA 15.7 U/ML (<35.0)
== END ==
LOC: M LAB 07:09
PROVIDERS: ATTEND Physician Assistant
DX: E11.9 Type 2 diabetes mellitus without complications (principal); E83.52 Hypercalcemia; I10 Essential (primary) hypertension; Z85.43 Personal history of malignant neoplasm of ovary

== ENCOUNTER → 2024-06-10 | Outpatient (CLI) | payer OTHER ==
[~2024-06-10] MED LIST changes: -ADV250INH INH; +ADVA1AER9 INH
[2024-06-10 09:35] LABS: BLOOD UREA NITROGEN 14 MG/DL (9-23); CALCIUM LEVEL 10.9 MG/DL (8.3-10.6); CARBON DIOXIDE LEVEL 29 MMOL/L (20-31); CHLORIDE LEVEL 107 MMOL/L (98-107); CREATININE FOR GFR 0.68 MG/DL (0.55-1.30); GLOMERULAR FILTRATION RATE > 60.0 (>45); GLUCOSE, FASTING 112 MG/DL (74-106); POTASSIUM SERUM 4.5 MMOL/L (3.5-5.1); PTH INTACT 94.7 PG/ML (18.5-88.0); SODIUM LEVEL 142 MMOL/L (136-145)
== END ==
LOC: M LAB 08:41
PROVIDERS: ATTEND Physician Assistant
DX: E83.52 Hypercalcemia (principal)

== ENCOUNTER → 2024-06-15 | Outpatient (REF) | payer OTHER ==
[2024-06-15 12:03] LABS: CALCIUM, URINE 17.2 MG/DL
[2024-06-15 13:21] LABS: CALCIUM, 24 HOUR URINE 447.2 MG/24HR (42-353)
== END ==
LOC: M SFHCADAM 11:13
PROVIDERS: ATTEND Physician Assistant
DX: E83.52 Hypercalcemia (principal)

== ENCOUNTER → 2024-07-17 | Outpatient (REF) | payer OTHER | LOC: M SFHCPLAZ 14:22 | PROVIDERS: ATTEND Nurse Practitioner Family | DX: R05.9 Cough, unspecified (principal) ==

== ENCOUNTER → 2024-07-29 | Outpatient (CLI) | payer OTHER | LOC: M PLAIMG 14:52 | PROVIDERS: ATTEND Nurse Practitioner Family | DX: R06.02 Shortness of breath (principal) ==

== ENCOUNTER → 2024-09-08 | Outpatient (REF) | payer OTHER ==
[2024-09-08 19:47] LABS: BLOOD UREA NITROGEN 10 MG/DL (9-23); CARBON DIOXIDE LEVEL 29 MMOL/L (20-31); CHLORIDE LEVEL 103 MMOL/L (98-107); CREATININE FOR GFR 0.65 MG/DL (0.55-1.30); GLOMERULAR FILTRATION RATE > 60.0 (>45); GLUCOSE, FASTING 102 MG/DL (74-106); SODIUM LEVEL 139 MMOL/L (136-145)
== END ==
LOC: M SFHCADAM 11:14
PROVIDERS: ATTEND Physician Assistant
DX: E87.5 Hyperkalemia (principal)

== ENCOUNTER → 2025-01-19 | Outpatient (CLI) | payer OTHER ==
[2025-01-19 11:24] LABS: PLATELET COUNT, AUTOMATED 215 10^3/uL (150-450)
[2025-01-19 11:49] LABS: ESTIMATED AVERAGE GLUCOSE 126.0 MG/DL (60-110)
[2025-01-19 11:54] LABS: CALCIUM LEVEL 10.9 MG/DL (8.3-10.6); CARBON DIOXIDE LEVEL 29 MMOL/L (20-31); CHLORIDE LEVEL 104 MMOL/L (98-107); CREATININE FOR GFR 0.73 MG/DL (0.55-1.30); GLOMERULAR FILTRATION RATE > 90.0 (>45); POTASSIUM SERUM 4.9 MMOL/L (3.5-5.1); SODIUM LEVEL 143 MMOL/L (136-145)
== END ==
LOC: M LAB 10:58
PROVIDERS: ATTEND Physician Assistant
DX: E11.9 Type 2 diabetes mellitus without complications (principal)

== ENCOUNTER → 2025-03-23 | Outpatient (CLI) | payer OTHER ==
[~2025-03-23] MED LIST changes: +CAPT25TA5 PO; -CAPTO25TA PO; +ISOVUE-370 76% 100 ML VIAL As Ordered ONE
== END ==
LOC: M RAD 07:39
PROVIDERS: ATTEND Physician Assistant
DX: R93.89 Abnormal findings on diagnostic imaging of other specified body structures (principal)